=== PATIENT | female | born 1995 | race American Indian/Alaskan Native ===

== ENCOUNTER 2017-06-26 15:38 | Emergency (ER) | payer OTHER ==
[2017-06-26 15:49] VITALS: RESP 20
[2017-06-26] MEDS ORDERED: Naproxen 550 mg Tab PO STA (15:53)
[2017-06-26] MEDS ORDERED: Naproxen 550 mg Tab PO ONE (15:57)
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
[2017-06-26 16:41] VITALS: BP 116/78; PULSE 108; TEMP 98.1
[2017-06-28 14:10] VITALS: O2SAT 98
== END 2017-06-26 16:43 | disposition home or self-care (01) ==
LOC: C.ER 15:38
DX: S83.92XA Sprain of unspecified site of left knee, initial encounter (principal); S83.91XA Sprain of unspecified site of right knee, initial encounter; V89.2XXA Person injured in unspecified motor-vehicle accident, traffic, initial encounter